=== PATIENT | male | born 1970 | race Caucasian/White ===

== ENCOUNTER 2016-12-18 18:27 | Emergency (ER) | payer MEDICAID ==
[~2016-12-18] VITALS: Ht 175.3 cm; Wt 112.3 kg
[~2016-12-18 18:27] MED LIST: CEPHALEXIN500 M1 PO; CIPRO 250MG TA250 MG PO; FLEXERIL10 MG PO; LORTAB 5/500 501 TAB PO; LORTAB 7.5/5001 TAB PO; NAPROSYN500 MG PO; NO HOME MEDICATIONS; NORCO 325 MG-51 TAB PO; NORCO 325 MG-7.1 TAB PO; PENICILLIN V500 MG PO; PERCOCET 325 MG1 TA2 PO; PERCOCET 500 MG1 TAB PO; ROBAXIN500 MG PO; ULTRAM 50MG TAB50 MG PO; ZESTRIL 20MG TA20 MG PO
[2016-12-18 18:33] VITALS: BP 202/126; TEMP 98.2
[2016-12-18] MEDS ORDERED: NORCO 325 MG-51 TAB PO (20:15)
[2016-12-18 20:27] VITALS: PULSE 95
== END 2016-12-18 20:26 | disposition home or self-care (01) ==
LOC: COL.ER 18:27
DX: M25.522 Pain in left elbow (principal); I10 Essential (primary) hypertension; M77.9 Enthesopathy, unspecified

== ENCOUNTER 2017-04-20 13:00 | Outpatient (RCR) | payer MEDICAID ==
[2017-05-03] MEDS ORDERED: NORCO 325 MG-51 TAB PO (16:41)
[2017-05-12] MEDS ORDERED: PRINIVIL10 MG PO (20:11)
== END 2017-06-15 ==
LOC: WSOT
DX: Z47.89 Encounter for other orthopedic aftercare (principal)

== ENCOUNTER 2017-05-03 16:00 | Emergency (ER) | payer MEDICAID ==
[~2017-05-03] VITALS: Ht 175.3 cm; Wt 111.4 kg
[2017-05-03 16:09] VITALS: TEMP 98.7
[2017-05-03] MEDS ORDERED: NORCO 325 MG-51 TAB PO (16:41)
[2017-05-03 17:20] VITALS: BP 151/123; PULSE 97
== END 2017-05-03 17:21 | disposition home or self-care (01) ==
LOC: COL.ER 16:00
DX: G56.22 Lesion of ulnar nerve, left upper limb (principal); S00.81XA Abrasion of other part of head, initial encounter; X50.9XXA Other and unspecified overexertion or strenuous movements or postures, initial encounter; Y04.0XXA Assault by unarmed brawl or fight, initial encounter; Y92.414 Local residential or business street as the place of occurrence of the external cause; R03.0 Elevated blood-pressure reading, without diagnosis of hypertension
CPT/HCPCS: J1170; J1885

== ENCOUNTER 2017-05-12 18:15 | Emergency (ER) | payer MEDICAID ==
[~2017-05-12] VITALS: Ht 175.3 cm; Wt 113.6 kg
[2017-05-12 18:25] VITALS: BP 177/118; PULSE 80; TEMP 99.3
[2017-05-12] MEDS ORDERED: PRINIVIL10 MG PO (20:11)
== END 2017-05-12 20:29 | disposition home or self-care (01) ==
LOC: COL.ER 18:15
DX: M25.522 Pain in left elbow (principal); I10 Essential (primary) hypertension; F17.210 Nicotine dependence, cigarettes, uncomplicated; Z91.14 Patient's other noncompliance with medication regimen; Z90.89 Acquired absence of other organs; Z98.890 Other specified postprocedural states
CPT/HCPCS: J1885

== ENCOUNTER → 2018-02-13 | Outpatient (CLI) | payer MEDICAID ==
[~2018-02-13] MED LIST changes: +PRINIVIL10 MG PO
== END ==
LOC: MHCPAIN 08:28
DX: G89.29 Other chronic pain (principal); M79.2 Neuralgia and neuritis, unspecified; M79.1 Myalgia
CPT/HCPCS: G0463